=== PATIENT | male | born 1965 | race Caucasian/White ===

== ENCOUNTER 2020-05-13 07:48 | Outpatient (REF) | payer OTHER, SELFPAY ==
[2020-05-13 08:44] LABS: Hematocrit 46.7 % (42-52); Hemoglobin 15.7 g/dl (14.0-18.0); Mean Corpuscular HGB Conc 33.6 g/dl (31.0-36.0); Mean Corpuscular Hemoglobin 30.1 pg (27.0-33.0); Mean Corpuscular Volume 89.6 fL (80-98); Mean Platelet Volume 9.5 fL (9.4-12.4); Platelet Count 299 X10*3/uL (160-400); Red Blood Count 5.21 X10*6/uL (4.60-5.80); Red Cell Distribution Width 12.6 % (11.0-16.0); White Blood Count 5.3 X10*3/uL (4.8-10.8)
[2020-05-13 09:12] LABS: Alanine Aminotransferase 34 U/L (0-40); Albumin Level 4.7 g/dL (3.5-5.0); Alkaline Phosphatase 74 U/L (39-117); Anion Gap 14 (12-20); Aspartate Amino Transferase 31 U/L (5-37); Bilirubin Direct 0.2 mg/dL (0.0-0.5); Bilirubin Total 0.4 mg/dL (0.0-1.0); Blood Urea Nitrogen 19 mg/dL (9-16); Calcium 9.2 mg/dL (8.4-10.2); Carbon Dioxide 25 mmol/L (22-29); Chloride 106 mmol/L (96-108); Cholesterol 234 mg/dL; Estimated Glomerular Filt Rate > 60; Glucose Random 110 mg/dL (60-115); HDL Cholesterol 50 mg/dL; LDL Cholesterol Calculated 162 mg/dl; Potassium 5.1 mmol/L (3.3-5.1); Sodium 140 mmol/L (135-145); Total Protein 7.5 g/dL (6.5-8.0); Triglycerides 110 mg/dL
[2020-05-13 09:37] LABS: Thyroid Stimulating Hormone 1.52 uIU/mL (0.32-4.0)
[2020-05-13 09:47] LABS: Folate 19.6 ng/mL (> or = 4.0); Vitamin B12 623 pg/mL (200-900)
[2020-05-17 13:31] LABS: Vitamin D 25-OH, D2 <4 ng/mL; Vitamin D 25-OH, D3 31 ng/mL; Vitamin D 25-OH, Total 31 ng/mL (30-100)
== END 2020-05-13 07:49 | disposition home or self-care (01) ==
LOC: HO.LAB 07:48
PROVIDERS: PCP Internal Medicine; Visit Provider Internal Medicine
DX: E78.00 Pure hypercholesterolemia, unspecified (principal)
CPT/HCPCS: 36415; 80048; 80061; 80076; 82306; 82607; 82746; 84443; 85027

== ENCOUNTER 2021-03-25 13:48 | Outpatient (REF) | payer OTHER, SELFPAY ==
[2021-03-25 14:24] LABS: Hematocrit 48.2 % (42.0-52.0); Hemoglobin 16.1 g/dl (14.0-18.0); Mean Corpuscular HGB Conc 33.4 g/dl (31.0-36.0); Mean Corpuscular Hemoglobin 29.5 pg (27.0-33.0); Mean Corpuscular Volume 88.4 fL (80.0-98.0); Mean Platelet Volume 10.3 fL (9.4-12.4); Platelet Count 284 X10*3/uL (160-400); Red Blood Count 5.45 X10*6/uL (4.60-5.80); Red Cell Distribution Width 11.9 % (11.0-16.0); White Blood Count 7.2 X10*3/uL (4.8-10.8)
[2021-03-25 15:14] LABS: Alanine Aminotransferase 51 U/L (0-40); Albumin Level 4.6 g/dL (3.5-5.0); Alkaline Phosphatase 73 U/L (39-117); Anion Gap 10 (12-20); Aspartate Amino Transferase 27 U/L (5-37); Bilirubin Direct 0.2 mg/dL (0.0-0.5); Bilirubin Total 0.7 mg/dL (0.0-1.0); Blood Urea Nitrogen 15 mg/dL (9-16); Calcium 10.2 mg/dL (8.4-10.2); Carbon Dioxide 26 mmol/L (22-29); Chloride 107 mmol/L (96-108); Cholesterol 234 mg/dL; Estimated Glomerular Filt Rate > 60; Glucose Random 95 mg/dL (60-115); HDL Cholesterol 41 mg/dL; LDL Cholesterol Calculated 161 mg/dl; Potassium 4.4 mmol/L (3.3-5.1); Sodium 139 mmol/L (135-145); Total Protein 7.5 g/dL (6.5-8.0); Triglycerides 160 mg/dL
[2021-03-25 15:35] LABS: Thyroid Stimulating Hormone 2.78 uIU/mL (0.32-4.0)
[2021-03-25 16:07] LABS: Appearance Urine CLEAR; Color Urine YELLOW; Glucose Urine UA NEG (NEG); Leukocyte Esterase Urine NEG (NEG); Nitrite Urine NEG (NEG); PH 6.5 (5.0-8.0); Urine Blood NEG (NEG); Urine Ketones NEG (NEG); Urine Protein NEG (NEG-TRACE)
== END 2021-03-25 13:49 | disposition home or self-care (01) ==
LOC: HO.LAB 13:48
PROVIDERS: PCP Internal Medicine; Visit Provider Internal Medicine
DX: E78.00 Pure hypercholesterolemia, unspecified (principal); F41.1 Generalized anxiety disorder
CPT/HCPCS: 36415; 80048; 80061; 80076; 81003; 84443; 85027

== ENCOUNTER 2022-03-23 09:10 | Outpatient (REF) | payer OTHER, SELFPAY ==
[2022-03-23 10:08] LABS: Hematocrit 47.9 % (42.0-52.0); Hemoglobin 16.4 g/dl (14.0-18.0); Mean Corpuscular HGB Conc 34.2 g/dl (31.0-36.0); Mean Corpuscular Hemoglobin 30.4 pg (27.0-33.0); Mean Corpuscular Volume 88.7 fL (80.0-98.0); Mean Platelet Volume 10.1 fL (9.4-12.4); Platelet Count 294 X10*3/uL (160-400); Red Cell Distribution Width 11.9 % (11.0-16.0); White Blood Count 6.9 X10*3/uL (4.8-10.8)
[2022-03-23 10:09] LABS: Appearance Urine Clear; Color Urine Yellow; Glucose Urine UA Negative (Negative); Leukocyte Esterase Urine Negative (Negative); Nitrite Urine Negative (Negative); PH 5.5 (5.0-9.0); Specific Gravity - Urine >= 1.030 (1.005-1.025); Urine Blood Negative (Negative); Urine Ketones Trace mg/dL (Negative); Urine Protein Negative (Neg-Trace)
[2022-03-23 10:45] LABS: Alanine Aminotransferase 57 U/L (0-40); Albumin Level 4.7 g/dL (3.5-5.0); Alkaline Phosphatase 83 U/L (39-117); Anion Gap 16 (12-20); Aspartate Amino Transferase 30 U/L (5-37); Bilirubin Direct 0.2 mg/dL (0.0-0.5); Bilirubin Total 0.6 mg/dL (0.0-1.0); Blood Urea Nitrogen 19 mg/dL (9-16); Calcium 9.8 mg/dL (8.4-10.2); Carbon Dioxide 21 mmol/L (22-29); Chloride 109 mmol/L (96-108); Cholesterol 193 mg/dL; Estimated Glomerular Filt Rate > 60; Glucose Random 96 mg/dL (60-115); HDL Cholesterol 46 mg/dL; LDL Cholesterol Calculated 132 mg/dl; Potassium 4.5 mmol/L (3.3-5.1); Sodium 141 mmol/L (135-145); Total Protein 7.3 g/dL (6.5-8.0); Triglycerides 78 mg/dL
== END 2022-03-23 09:11 | disposition home or self-care (01) ==
LOC: HO.LAB 09:10
PROVIDERS: PCP Internal Medicine; Visit Provider Internal Medicine
DX: E78.00 Pure hypercholesterolemia, unspecified (principal)
CPT/HCPCS: 36415; 80048; 80061; 80076; 81003; 84443; 85027

== ENCOUNTER 2022-09-30 15:11 | Outpatient (AMB) | payer OTHER, SELFPAY ==
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
[2022-09-30 15:15] VITALS: BP 138/89; PULSE 84; O2SAT 97; BMI 26.6
== END 2022-09-30 16:11 | disposition home or self-care (01) ==
PROVIDERS: PCP Internal Medicine; Visit Provider Internal Medicine
DX: Z00.00 Encounter for general adult medical examination without abnormal findings (principal); S60.011A Contusion of right thumb without damage to nail, initial encounter; F41.1 Generalized anxiety disorder; E78.00 Pure hypercholesterolemia, unspecified
CPT/HCPCS: 99396

== ENCOUNTER 2022-11-10 12:20 | Outpatient (REF) | payer OTHER, SELFPAY ==
--- NOTE | ~2022-11-10 | XR_ITS ---
EXAMINATION: XR KNEE, LEFT CLINICAL INFORMATION: Pain. COMPARISON: Radiographs dated 05/15/2014. TECHNIQUE: AP, lateral and sunrise views of the left knee. FINDINGS: No fracture or joint effusion. Alignment is anatomic. Joint spaces are maintained. No abnormal soft tissue calcification. There are surgical clips in the medial upper calf. XR/XR knee LT 3V IMPRESSION: Unremarkable left knee.
== END 2022-11-10 12:21 | disposition home or self-care (01) ==
LOC: HO.HOSX 12:20
PROVIDERS: Visit Provider Orthopaedic Surgery
DX: M25.562 Pain in left knee (principal)
CPT/HCPCS: 73562

== ENCOUNTER 2022-11-10 15:00 | Outpatient (AMB) | payer OTHER, SELFPAY ==
--- NOTE | 2022-11-10 15:04 | A.OFFVIS_ITS ---
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 Patient reports ongoing pain for many years. 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 He describes his pain as aching in nature. He denies any locking or giving way. Most of the pain is along the anterior aspect of his knee. He has not had an injection. Allergies acetaminophen [Vicodin] Allergy (Unknown, Verified 11/10/22 15:05) itching hydrocodone [From VICODIN] Allergy (Unknown, Verified 11/10/22 15:05) ITCHING Medication List - Last Reconciled 11/11/22 by Oren Muhammad MD albuterol sulfate 90 mcg/actuation 2 puffs inhalation Q6H PRN quetiapine 100 mg PO BEDTIME sertraline 50 mg PO DAILY sildenafil 100 mg PO DAILY PRN PFSH Medical History (Updated 11/08/22 @ 07:34 by Oren Muhammad MD) Erectile dysfunction Major depressive disorder in remission Reactive airway disease Generalized anxiety disorder Borderline hypercholesterolemia Surgical History History of shoulder surgery History of tonsillectomy History of varicose vein stripping Family History Father Cancer Hypertension Mother Cancer Social History Housing: House Alcohol intake: never Patient Tobacco Use Status: Former Tobacco user Tobacco use type: Cigarette e-Cigarette/Vaping Use: Never Used Second Hand Smoke Exposure: No service: Yes Current occupational status: employed Cognitive needs: No Hearing needs: No Vision needs: Yes (glasses) Physical Exam Vital Signs: BMI result Body Mass Index 26.6 Const Other: Well-nourished well-developed very friendly male awake alert and oriented x3 in no acute distress Extrem Other: Left knee examination shows a minimal effusion, minimal crepitus with range of motion, no joint line tenderness, negative Santino's test Results Reviewed Results Reviewed: X-rays of the patient's left knee show mild diffuse joint space narrowing, no acute bony abnormalities Assessment & Plan Assessment & Plan (1) Left knee pain: Code(s): M25.562 - Pain in left knee Plan Ms. Gooden presents with intermittent left knee pain due to early degenerative joint disease. I had a lengthy discussion with the patient regarding the treatment options. He does not wish for a cortisone injection at this time. Activity modifications were discussed at length with the patient. He will follow up with me on an as-needed basis should his symptoms worsen in any way. Feel free to call me at any time should questions regarding his orthopedic management arise. I spent 21 minutes in reviewing the patient's records and imaging studies, seeing the patient and documenting in the medical record. Orders: Orders XR knee LT 3V 11/10/22 M25.562 - Pain in left knee Coding Level of Care Code New Pt Level 2 (44706) Diagnoses Left knee pain M25.562
[2022-11-10 15:14] VITALS: BMI 26.6
== END 2022-11-10 15:32 | disposition home or self-care (01) ==
PROVIDERS: PCP Internal Medicine; Visit Provider Orthopaedic Surgery
DX: M25.562 Pain in left knee (principal)
CPT/HCPCS: 99202

== ENCOUNTER 2023-03-21 08:23 | Outpatient (AMB) | payer OTHER, SELFPAY ==
--- NOTE | 2023-03-21 08:26 | MHC.PC.OV ---
Vital Signs 03/21/23 08:28 Height 5 ft 7 in Weight 190 lb 2 oz BMI 29.8 BP 120/80 Blood Pressure Location Lt brachial Position Sitting Pulse 86 Pulse Source Pulse Oximeter Pulse Oximetry (%) 96 Oxygen Delivery Method Room Air Intake Visit Reasons: High Blood Pressure Intake Note: Patient is here to follow up on High Blood Pressure and medication review. Requesting for letter for work regarding possible new medication. 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: Not Required per policy Accompanied by: Self / Same As Patient Allergies acetaminophen [Vicodin] Allergy (Unknown, Verified 03/21/23 08:28) itching hydrocodone [From VICODIN] Allergy (Unknown, Verified 03/21/23 08:28) ITCHING Tobacco use date assessed: 03/21/23 Dental Screening Dental Screen Date: 03/21/23 Did you have a dental visit in the last 12 months?: Yes Did you have a dental problem in the last 6 months where you did not have access to dental care?: No Was dental information given to patient?: Patient has dentist HPI High Blood Pressure HPI Details 57-year-old male presents to the office to discuss his chronic medical conditions. Since last office visit, patient has medications for mental health have been changed. He is now on Adderall, mirtazapine, Seroquel and Zoloft. Since last office visit, he he admits some work for mental health reasons. Currently patient is working and able to do all activities of daily living. Is provider at the [facility] noted that his blood pressure is slightly elevated. Patient has been checking his blood pressures at home and reports that his diastolic blood pressure is elevated. Reports no symptoms of headaches or blurred vision. [facility], [facility] Medical History (Updated 03/21/23 @ 09:02 by Jose Orellana MD) Essential hypertension Erectile dysfunction Major depressive disorder in remission Reactive airway disease Generalized anxiety disorder Borderline hypercholesterolemia Surgical History History of tonsillectomy History of varicose vein stripping History of shoulder surgery Family History Father Cancer Hypertension Mother Cancer Social History Housing: House Alcohol intake: never Patient Tobacco Use Status: Former Tobacco user Tobacco use type: Cigarette e-Cigarette/Vaping Use: Never Used Second Hand Smoke Exposure: No service: Yes Current occupational status: employed Cognitive needs: No Hearing needs: No Vision needs: Yes (glasses) Questionnaire PHQ-9 Over the last 2 weeks, how often have you been bothered by any of the following problems? 1. Little interest or pleasure in doing things: not at all 2. Feeling down, depressed, or hopeless: several days (on medication) 3. Trouble falling or staying asleep, or sleeping too much: not at all 4. Feeling tired or having little energy: not at all 5. Poor appetite or overeating: not at all 6. Feeling bad about yourself - or that you are a failure or have let yourself or your family down: not at all 7. Trouble concentrating on things, such as reading the newspaper or watching television: not at all 8. Moving or speaking so slowly that other people could have noticed. Or the opposite - being so fidgety or restless that you have been moving around a lot more than usual: not at all 9. Thoughts that you would be better off or of hurting yourself in some way: not at all Total score: 1 Depression Screening Interpretation: Negative Depression Screening Done: Yes Source: Developed by Drs. Massimo Acosta, Zee Lopez, Philippe Groves and colleagues, with an educational yonathan from [employer]. Thrive Questionnaire Date Thrive assessed: 03/21/23 I am a: Patient What is your living situation today?: I have a steady place to live Within the past 12 months, did the food you bought not last and you didn't have the money to get more?: Never true Within the past 12 months, did you worry whether your food would run out before you got money to buy more?: Never true Do you have trouble paying for medicines?: No Do you have trouble getting transportation to medical appointments?: No Do you have trouble paying your heating and electricity bill?: No Do you have trouble taking care of your child, family member or friend?: No Do you have trouble with day-to-day activities such as bathing, preparing meals, shopping, managing finances, etc.?: No Are you currently unemployed and looking for a job?: No Are you interested in more education?: No Currently or been in a relationship where the following occur: no concerns reported THRIVE Score: 0 AUDIT C Alcohol Use Questionnaire (AUDIT-C) 1. How often do you have a drink containing alcohol?: Never Total Score: 0 SUKHI-7 AMB Questionnaire SUKHI-7 Date SUKHI - 7 assessed: 03/21/23 Feeling nervous, anxious, or on edge: 1 = Several days (on medication) Not being able to stop or control worryin = Not at all Worrying too much about different things: 0 = Not at all Trouble relaxin = Not at all Being so restless that it is hard to sit still: 0 = Not at all Becoming easily annoyed or irritable: 0 = Not at all Feeling afraid as if something awful might happen: 0 = Not at all Total SUKHI-7 score (0-4 normal; 5-9 mild; 10-14 moderate; 15-21 severe): 1 Source: Developed by Drs. Massimo Acosta, Zee Lopez, Philippe Groves and colleagues, with an educational yonathan from [employer]. Physical exam (Primary Care) Vital Signs: Last Vital Signs Pulse 86 03/21/23 08:28 BP 120/80 03/21/23 08:28 Pulse Ox 96 03/21/23 08:28 Oxygen Delivery Method Room Air 03/21/23 08:28 Care Plan Goal for BP management: Blood pressure is in range. BMI result Body Mass Index 29.8 1 lb per week weight loss suggested. BMI Assessment/Plan discussion: High Tobacco/Smoking Status: Tobacco use Status Tobacco use date assessed 03/21/23 03/21/23 08:28 Patient Tobacco Use Status Former Tobacco user 03/21/23 08:28 Tobacco use type Cigarette 03/21/23 08:28 e-Cigarette/Vaping Use Never Used 03/21/23 08:28 PHQ-9: PHQ-9 Score PHQ-9: Total score 1 03/21/23 08:34 Depression Screening Interpretation: Negative Thrive Assessment: Date of Thrive Assessment Date Thrive assessed 03/21/23 03/21/23 08:28 Currently or been in a relationship where the following occur: no concerns reported Const General: cooperative and healthy appearing Nutritional Appearance: well nourished Orientation/consciousness: patient oriented x3 Limitations: no limitations HENMT Head: Yes normal to inspection Eyes General: appearance normal, both eyes and all related structures Neck Neck: Yes normal visual inspection Chest Chest palpation & inspection: normal palpation of entire chest wall Resp Effort & Inspection: normal respiratory effort Neuro General: patient oriented x3 Assessment and Plan Assessment & Plan (1) Essential hypertension: Code(s): I10 - Essential (primary) hypertension Plan: Lisinopril added to the regimen. Blood work has been ordered. Will call with the results of the test. (2) Major depressive disorder in remission: Code(s): F32.5 - Major depressive disorder, single episode, in full remission Plan: Continue current medications. (3) Generalized anxiety disorder: Code(s): F41.1 - Generalized anxiety disorder Orders: Orders Basic Metabolic Panel Today I10 - Essential (primary) hypertension Lipid Panel Today I10 - Essential (primary) hypertension Thyroid Stimulating Hormone Today I10 - Essential (primary) hypertension UA and rflx microscopic Today I10 - Essential (primary) hypertension Complete Blood Count no Diff Today I10 - Essential (primary) hypertension Liver Panel Today I10 - Essential (primary) hypertension Coding Level of Care Code Est Pt Level 4 (13413) Diagnoses Essential hypertension I10 Major depressive disorder in remission F32.5 Generalized anxiety disorder F41.1
[2023-03-21 08:28] VITALS: BP 120/80; PULSE 86; O2SAT 96; BMI 29.8
== END 2023-03-21 09:00 | disposition home or self-care (01) ==
PROVIDERS: PCP Internal Medicine; Visit Provider Internal Medicine
DX: I10 Essential (primary) hypertension (principal); F32.5 Major depressive disorder, single episode, in full remission; F41.1 Generalized anxiety disorder
CPT/HCPCS: 99214

== ENCOUNTER 2023-03-21 09:04 | Outpatient (REF) | payer OTHER, SELFPAY ==
[2023-03-21 10:55] LABS: Hematocrit 44.4 % (42.0-52.0); Mean Corpuscular HGB Conc 33.8 g/dl (31.0-36.0); Mean Corpuscular Hemoglobin 29.5 pg (27.0-33.0); Mean Corpuscular Volume 87.2 fL (80.0-98.0); Mean Platelet Volume 9.5 fL (9.4-12.4); Platelet Count 276 X10*3/uL (160-400); Red Blood Count 5.09 X10*6/uL (4.60-5.80); Red Cell Distribution Width 12.9 % (11.0-16.0); White Blood Count 6.8 X10*3/uL (4.8-10.8)
[2023-03-21 11:06] LABS: Appearance Urine Clear; Color Urine Yellow; Glucose Urine UA Negative (Negative); Leukocyte Esterase Urine Negative (Negative); Nitrite Urine Negative (Negative); Specific Gravity - Urine 1.015 (1.005-1.025); Urine Blood Negative (Negative); Urine Ketones Negative (Negative); Urine Protein Negative (Neg-Trace)
[2023-03-21 11:16] LABS: Alanine Aminotransferase 32 U/L (0-40); Albumin Level 4.3 g/dL (3.5-5.0); Alkaline Phosphatase 82 U/L (39-117); Anion Gap 13 (12-20); Aspartate Amino Transferase 28 U/L (5-37); Bilirubin Direct 0.1 mg/dL (0.0-0.5); Bilirubin Total 0.3 mg/dL (0.0-1.0); Blood Urea Nitrogen 17 mg/dL (9-16); Calcium 9.8 mg/dL (8.4-10.2); Carbon Dioxide 26 mmol/L (22-29); Chloride 106 mmol/L (96-108); Cholesterol 203 mg/dL (<200); Estimated Glomerular Filt Rate > 60; Glucose Random 116 mg/dL (60-115); HDL Cholesterol 59 mg/dL (>40); LDL Cholesterol Calculated 122 mg/dL (<100); Potassium 4.7 mmol/L (3.3-5.1); Sodium 140 mmol/L (135-145); Total Protein 7.2 g/dL (6.5-8.0); Triglycerides 112 mg/dL (<150)
== END 2023-03-21 09:05 | disposition home or self-care (01) ==
LOC: HO.10HDL 09:04
PROVIDERS: Visit Provider Internal Medicine
DX: I10 Essential (primary) hypertension (principal)
CPT/HCPCS: 36415; 80048; 80061; 80076; 81003; 84443; 85027

== ENCOUNTER 2023-05-26 11:22 | Outpatient (AMB) | payer OTHER, SELFPAY ==
[2023-05-26 11:44] VITALS: BMI 29.8
--- NOTE | 2023-05-26 11:44 | A.OFFVIS_ITS ---
Intake Vital Signs 05/26/23 11:44 Height 5 ft 7 in Weight 190 lb BMI 29.8 Intake Visit Reasons: OV-B/L knee injection Intake Note: Rafael is a 57 year old male who presents with bilateral knee pains. He describes his pains as achy in nature. He has tried Tylenol and anti- inflammatory medicines which gave him minimal relief. Allergies acetaminophen [Vicodin] Allergy (Unknown, Verified 05/26/23 11:53) itching hydrocodone [From VICODIN] Allergy (Unknown, Verified 05/26/23 11:53) ITCHING Medication List - Last Reconciled 05/27/23 by Oren Muhammad MD albuterol sulfate 90 mcg/actuation 2 puffs inhalation Q6H PRN lisinopril 5 mg PO DAILY omeprazole 20 mg PO DAILY quetiapine 50 mg PO BEDTIME sertraline 50 mg PO DAILY sildenafil 100 mg PO DAILY PRN PFSH Medical History (Updated 05/27/23 @ 06:57 by Oren Muhammad MD) Left knee pain Essential hypertension Erectile dysfunction Major depressive disorder in remission Reactive airway disease Generalized anxiety disorder Borderline hypercholesterolemia Surgical History History of tonsillectomy History of varicose vein stripping History of shoulder surgery Family History Father Cancer Hypertension Mother Cancer Social History Housing: House Alcohol intake: never Patient Tobacco Use Status: Former Tobacco user Tobacco use type: Cigarette e-Cigarette/Vaping Use: Never Used Second Hand Smoke Exposure: No service: Yes Current occupational status: employed Cognitive needs: No Hearing needs: No Vision needs: Yes (glasses) Physical Exam Vital Signs: BMI result Body Mass Index 29.8 Const Other: Well-nourished well-developed very friendly male awake alert and oriented x3 in no acute distress Extrem Other: Bilateral lower extremity examination shows good capillary refill, no skin lesions noted, normal sensation light touch Bilateral knee examination is shows minimal effusions, mild crepitus with range of motion, no instability Office Procedures Joint Injection/Drain Joint Injection/Drain Primary Site: left knee Prep: site was prepped using aseptic technique Injected: 40 mg of, DepoMedrol and 1% plain lidocaine Procedure: The patient tolerated the procedure well Coding 79131 - Large joint Procedure code (CPT) selection complete Joint Injection/Drain Joint Injection/Drain Primary Site: right knee Prep: site was prepped using aseptic technique Injected: 40 mg of, DepoMedrol and 1% plain lidocaine Procedure: The patient tolerated the procedure well Coding 94576 - Large joint Procedure code (CPT) selection complete Assessment & Plan Assessment & Plan (1) Left knee pain: Code(s): M25.562 - Pain in left knee (2) Right knee pain: Code(s): M25.561 - Pain in right knee Plan Mr. Gooden presents with bilateral knee pains due to early degenerative joint disease. I had a lengthy discussion with the patient regarding the treatment options. The risks and benefits of bilateral knee cortisone injections were discussed at length with the patient. The patient wished to proceed with the injections. He tolerated the injections well. He will continue with activities as tolerated. He will follow up with me on an as-needed basis should his symptoms not plateau at an unacceptable level over the next few months. Feel free to call me at any time should questions regarding his orthopedic management arise. I spent 22 minutes in reviewing the patient's records and imaging studies, seeing the patient and documenting in the medical record. Orders: Orders AMB Joint Injection/Aspiration 05/26/23 M25.562 - Pain in left knee AMB Joint Injection/Aspiration 05/26/23 M25.561 - Pain in right knee Coding Level of Care Code Est Pt Level 2 (32339) Diagnoses Left knee pain M25.562 Right knee pain M25.561 CPT Codes Coding - 99071 Large joint: 38944 - Large joint ([id number]) Coding - 65213 Large joint: 09882 - Large joint ([id number])
== END 2023-05-26 12:22 | disposition home or self-care (01) ==
PROVIDERS: PCP Internal Medicine; Visit Provider Orthopaedic Surgery
DX: M25.562 Pain in left knee (principal); M25.561 Pain in right knee
CPT/HCPCS: 20610; 99212

== ENCOUNTER → 2023-05-26 11:22 | Outpatient (BNVA) | payer OTHER, SELFPAY | PROVIDERS: PCP Internal Medicine; Visit Provider Orthopaedic Surgery | DX: M17.0 Bilateral primary osteoarthritis of knee (principal) | CPT/HCPCS: 20610; J1010; J1020 ==

== ENCOUNTER 2023-07-14 07:32 | Outpatient (AMB) | payer OTHER, SELFPAY ==
--- NOTE | 2023-07-14 07:42 | MHC.OFFVIS ---
Vital Signs 07/14/23 07:49 Height 5 ft 7 in Weight 190 lb BMI 29.8 BP 146/80 H Blood Pressure Location Lt brachial Position Sitting Pulse 79 Intake Visit Reasons: Colonoscopy Screening Intake Note: Patient new consult for 3rd pre colonoscopy screening. Patient denies any GI issues. He have 2 more Colonoscopy in the pass at [facility]. Pensionholder Information Clerk Required: No Accompanied by: Self / Same As Patient Allergies acetaminophen [Vicodin] Allergy (Unknown, Verified 07/14/23 07:41) itching hydrocodone [From VICODIN] Allergy (Unknown, Verified 07/14/23 07:41) ITCHING Medication List - Last Reconciled 07/14/23 by Alice Fernandes PA-C albuterol sulfate 90 mcg/actuation 2 puffs inhalation Q6H PRN lisinopril 5 mg PO DAILY omeprazole 20 mg PO DAILY quetiapine 50 mg PO BEDTIME sertraline 50 mg PO DAILY sildenafil 100 mg PO DAILY PRN HPI Comments Details: A 57 y/o male family history of colon cancer-due for colonoscopy 2019- normal; colonoscopy Fam hx - father and mat aunt Normal bowels Appetite is good-however does have GERD he has been taking omeprazole 20 mg fair response-he has never had a screening for Akers's Uses inhaler-good response No nausea, vomiting hematemesis, hematochezia fever or chills PFSH Medical History (Updated 07/14/23 @ 13:45 by Alice Fernandes PA-C) Left knee pain Essential hypertension Erectile dysfunction Major depressive disorder in remission Reactive airway disease Generalized anxiety disorder Borderline hypercholesterolemia Surgical History History of tonsillectomy History of varicose vein stripping History of shoulder surgery Family History Father Cancer Hypertension Mother Cancer Social History (Updated 07/14/23 @ 10:44 by Alice Fernandes PA-C) Housing: House Alcohol intake: never Patient Tobacco Use Status: Former Tobacco user Tobacco use type: Cigarette e-Cigarette/Vaping Use: Never Used Second Hand Smoke Exposure: No service: Yes Current occupational status: employed Current occupational exposures/hazards: Yes Cognitive needs: No Hearing needs: No Vision needs: Yes (glasses) Review of Systems Const All systems reviewed & are unremarkable except as noted in HPI and below Card Denies chest pain and Denies dyspnea Resp Denies dyspnea GI Denies abdominal pain, Denies change in bowel habits, Reports heartburn, Denies nausea and Denies vomiting Physical Exam Vital Signs: Last Vital Signs Pulse 79 07/14/23 07:49 BP 146/80 H 07/14/23 07:49 BMI result Body Mass Index 29.8 Const General: cooperative, healthy appearing, comfortable and no acute distress Orientation/consciousness: patient oriented x3 Limitations: no limitations Eyes Sclerae: sclerae normal Resp Effort & Inspection: normal respiratory effort and able to speak in complete sentences Auscultation: clear to auscultation bilaterally, no rales, no rhonchi and no wheezes Cardio Rate: regular rate Rhythm: regular rhythm Heart sounds: S1 normal heart sound present and S2 normal heart sound present GI Palpation (GI): Soft to palpation and nontender Auscultation: normal bowel sounds Skin General skin exam: no rashes or lesions noted Neuro General: patient oriented x3 Extrem General: Yes full ROM Psych Appearance: grossly normal and well kempt Mental Status: mental status grossly normal Speech and movement: Normal speech and movement present and Clear speech present Affect: normal affect Attitude: cooperative Thought process: Normal thought process present Thought content: Normal thought content present Insight: Good insight present (Psych) Judgement: Good judgement present (Psych) Assessment & Plan Assessment & Plan (1) Family history of colon cancer: Comment: Father and maternal aunt Code(s): Z80.0 - Family history of malignant neoplasm of digestive organs Category: Medical Plan: Colonoscopy (2) Acid reflux: Comment: Very pleasant Gent Acid reflux for years, PPI never had screening for Akers Code(s): K21.9 - Gastro-esophageal reflux disease without esophagitis Category: Medical Plan: EGD -Akers's surveillance, r/o PUD, nonulcer dyspepsia, esophagitis other endoscopic findings to account for his some Continue PPI Reflux precautions Plan egd/ colo= send ss Orders: Orders EGD/Maple Combo - GI Use Only Today Medications: New bisacodyl (Dulcolax (bisacodyl)) Day before procedure @ 12 noon Take 4 tablets by mouth followed by large glass of water 20 mg (4 x 5 mg) PO ONCE PRN 4 tabs 0RF colonoscopy prep 1 day Z12.11 - Encounter for screening for malignant neoplasm of colon polyethylene glycol 3350 (Miralax) Take as directed by mouth the day before your procedure. 238 grams PO ONCE PRN 238 grams 0RF laxative effect 1 day Patient Instructions: EGD colonoscopy MiraLax Gatorade prep, reviewed literature given Reflux precautions Continue PPI Call with questions or concerns Coding Level of Care Code New Pt Level 3 (41022) Diagnoses Family history of colon cancer Z80.0 Acid reflux K21.9 Time Spent (min) 35
[2023-07-14 07:49] VITALS: BP 146/80; PULSE 79; BMI 29.8
== END 2023-07-14 08:38 | disposition home or self-care (01) ==
PROVIDERS: PCP Internal Medicine; Visit Provider Physician Assistant
DX: Z80.0 Family history of malignant neoplasm of digestive organs (principal); K21.9 Gastro-esophageal reflux disease without esophagitis
CPT/HCPCS: 99203

== ENCOUNTER → 2023-07-14 07:32 | Outpatient (BNVA) | payer OTHER, SELFPAY | PROVIDERS: PCP Internal Medicine; Visit Provider Physician Assistant ==

== ENCOUNTER 2023-09-22 15:01 | Outpatient (AMB) | payer OTHER, SELFPAY ==
[2023-09-22 15:08] VITALS: BP 132/90; PULSE 80; O2SAT 98; BMI 30.1
--- NOTE | 2023-09-22 15:08 | A.OFFPC_ITS ---
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 Allergies acetaminophen [Vicodin] Allergy (Unknown, Verified 09/22/23 15:09) itching hydrocodone [From VICODIN] Allergy (Unknown, Verified 09/22/23 15:09) ITCHING Medication List - Last Reconciled 09/22/23 by Nicol Damon PA-C albuterol sulfate 90 mcg/actuation 2 puffs inhalation Q6H PRN bisacodyl (Dulcolax (bisacodyl)) 20 mg (4 x 5 mg) PO ONCE PRN 1 day lisinopril 10 mg PO DAILY omeprazole 20 mg PO DAILY polyethylene glycol 3350 (Miralax) 238 grams PO ONCE PRN 1 day quetiapine 50 mg PO BEDTIME sertraline 50 mg PO DAILY sildenafil 100 mg PO DAILY PRN Tobacco use date assessed: 03/21/23 Dental Screening Dental Screen Date: 03/21/23 Did you have a dental visit in the last 12 months?: Yes Did you have a dental problem in the last 6 months where you did not have access to dental care?: No Was dental information given to patient?: Patient has dentist HPI 6mth f/u HPI Details 58-year-old male with past medical histo ry of GERD, hypertension, generalized anxiety disorder, elevated cholesterol, and depression last seen by Dr. Orellana coming in for follow up. Patient regularly follows with the [place] for mental health services and received some medications through them. Patient also sees Orthopedics for bilateral knee injections. He does also see a chicle grinder feeder for plantar fasciitis and has received injections for this to. Today he tells us his blood pressures have been mostly elevated while at home he does take them multiple times a day. He has been taking the lisinopril 10 mg for the past 6 months every day. He also mentions he has been having increased bilateral foot pain from his plantar fasciitis. He is looking to have an injection but is unsure when he will be able to get in with his chicle grinder feeder. [facility] Medical History (Updated 09/22/23 @ 17:09 by Nicol Damon PA-C) Left knee pain Essential hypertension Erectile dysfunction Major depressive disorder in remission Reactive airway disease Generalized anxiety disorder Borderline hypercholesterolemia Surgical History History of tonsillectomy History of varicose vein stripping History of shoulder surgery Family History Father Cancer Hypertension Mother Cancer Social History (Updated 07/14/23 @ 10:44 by Alice Fernandes PA-C) Housing: House Alcohol intake: never Patient Tobacco Use Status: Former Tobacco user Tobacco use type: Cigarette e-Cigarette/Vaping Use: Never Used Second Hand Smoke Exposure: No service: Yes Current occupational status: employed Current occupational exposures/hazards: Yes Cognitive needs: No Hearing needs: No Vision needs: Yes (glasses) Questionnaire PHQ-9 Over the last 2 weeks, how often have you been bothered by any of the following problems? 1. Little interest or pleasure in doing things: not at all 2. Feeling down, depressed, or hopeless: several days (on medication) 3. Trouble falling or staying asleep, or sleeping too much: not at all 4. Feeling tired or having little energy: not at all 5. Poor appetite or overeating: not at all 6. Feeling bad about yourself - or that you are a failure or have let yourself or your family down: not at all 7. Trouble concentrating on things, such as reading the newspaper or watching television: not at all 8. Moving or speaking so slowly that other people could have noticed. Or the opposite - being so fidgety or restless that you have been moving around a lot more than usual: not at all 9. Thoughts that you would be better off or of hurting yourself in some way: not at all Total score: 1 Depression Screening Interpretation: Negative Depression Screening Done: Yes Source: Developed by Drs. Massimo Acosta, Zee Lopez, Philippe Groves and colleagues, with an educational yonathan from [employer]. Thrive Questionnaire Date Thrive assessed: 03/21/23 I am a: Patient What is your living situation today?: I have a steady place to live Within the past 12 months, did the food you bought not last and you didn't have the money to get more?: Never true Within the past 12 months, did you worry whether your food would run out before you got money to buy more?: Never true Do you have trouble paying for medicines?: No Do you have trouble getting transportation to medical appointments?: No Do you have trouble paying your heating and electricity bill?: No Do you have trouble taking care of your child, family member or friend?: No Do you have trouble with day-to-day activities such as bathing, preparing meals, shopping, managing finances, etc.?: No Are you currently unemployed and looking for a job?: No Are you interested in more education?: No THRIVE Score: 0 AUDIT C Alcohol Use Questionnaire (AUDIT-C) 1. How often do you have a drink containing alcohol?: Never 3. How often do you have six or more drinks on one occasion?: Never Total Score: 0 SUKHI-7 AMB Questionnaire SUKHI-7 Date SUKHI - 7 assessed: 03/21/23 Feeling nervous, anxious, or on edge: 1 = Several days (on medication) Not being able to stop or control worryin = Not at all Worrying too much about different things: 0 = Not at all Trouble relaxin = Not at all Being so restless that it is hard to sit still: 0 = Not at all Becoming easily annoyed or irritable: 0 = Not at all Feeling afraid as if something awful might happen: 0 = Not at all Total SUKHI-7 score (0-4 normal; 5-9 mild; 10-14 moderate; 15-21 severe): 1 Source: Developed by Drs. Massimo Acosta, Zee Lopez, Philippe Groves and colleagues, with an educational yonathan from [employer]. Review of Systems Const Denies body aches, Denies chills and Denies fever(s) Eyes Reports no additional complaints ENT Reports no additional complaints and Denies dizziness Card Denies chest pain, Denies edema, Denies irregular heart rhythm, Denies lightheadedness and Denies dyspnea Resp Denies dyspnea GI Reports no additional complaints Reports no additional complaints Musc Reports as per HPI and Denies abnormal gait Skin/Breast Reports system reviewed and no additional complaints, except as documented Neuro Denies abnormal gait and Denies dizziness Psych Reports no additional complaints Physical exam (Primary Care) Vital Signs: Last Vital Signs Pulse 80 09/22/23 15:08 BP 132/90 H 09/22/23 15:08 Pulse Ox 98 09/22/23 15:08 Oxygen Delivery Method Room Air 09/22/23 15:08 BMI result Body Mass Index 30.1 Tobacco/Smoking Status: Tobacco use Status Tobacco use date assessed 03/21/23 09/22/23 15:09 Patient Tobacco Use Status Former Tobacco user 09/22/23 15:09 Tobacco use type Cigarette 09/22/23 15:09 e-Cigarette/Vaping Use Never Used 09/22/23 15:09 PHQ-9: PHQ-9 Score PHQ-9: Total score 1 09/22/23 16:37 Depression Screening Interpretation: Negative Thrive Assessment: Date of Thrive Assessment Date Thrive assessed 03/21/23 09/22/23 15:09 Const General: cooperative, healthy appearing, comfortable and no acute distress Orientation/consciousness: patient oriented x3 HENMT Head: Yes normocephalic Ears: hearing grossly normal bilaterally General nose exam: Normal external nose present Eyes General: appearance normal, both eyes and all related structures Conjunctivae: conjunctivae normal Neck Neck: Yes full ROM and Yes no lymphadenopathy Resp Effort & Inspection: normal respiratory effort and able to speak in complete sentences Cardio Rate: regular rate Rhythm: regular rhythm Skin General skin exam: no rashes or lesions noted Neuro General: patient oriented x3 Gait exam (Neuro): Normal gait present Extrem General: Yes normal to inspection, Yes full ROM and No edema Psych Affect: normal affect Attitude: cooperative Insight: Good insight present (Psych) Judgement: Good judgement present (Psych) Assessment and Plan Assessment & Plan (1) Essential hypertension: Code(s): I10 - Essential (primary) hypertension Plan: Blood pressure elevated again in the office today. Blood pressure was 144/86 and 140/90 when retaken. Recommended increasing dose of lisinopril to 20 mg. Advised patient that if he begins to have low blood pressures at home less than 110/60 or he begins to have symptoms of lightheadedness or dizziness then to discontinue the 20 mg and returned to the 10 mg and call the office. Follow up in 2 months for repeat evaluation. Patient is agreeable to this plan. (2) Plantar fasciitis: Code(s): M72.2 - Plantar fascial fibromatosis Plan: Patient has a history of plantar fasciitis in his followed by a chicle grinder feeder. He has previously had injections in his feet and found good relief from this. He has also been working on the stretching exercises at home. He is requesting a stronger medication in the meantime until he can get scheduled for another injection. We can try a muscle relaxer to help with the pain. Advised patient he can not drive or work while on this medication. Plan This note was constructed using voice recognition software. While every effort has been made to ensure accuracy and convex grinder operator, still areas may have been included sometimes these areas may affect the content or meeting of the given symptoms. Total time spent caring for the patient today was 20 minutes. This includes time spent before the visit reviewing the chart, time spent during the visit, and time spent after the visit and documentation. Medications: New cyclobenzaprine 5 mg PO TID PRN 14 tabs 0RF muscle pain lisinopril 20 mg PO DAILY 30 tabs 3RF Discontinued lisinopril Discontinued Reason: Patient no longer taking 10 mg PO DAILY 90 tabs 1RF Coding Level of Care Code Est Pt Level 4 (38889) Diagnoses Essential hypertension I10 Plantar fasciitis M72.2
== END 2023-09-22 16:59 | disposition home or self-care (01) ==
PROVIDERS: PCP Internal Medicine
DX: I10 Essential (primary) hypertension (principal); M72.2 Plantar fascial fibromatosis
CPT/HCPCS: 99214

== ENCOUNTER 2023-10-13 10:19 | Outpatient (REF) | payer OTHER, SELFPAY | END 2023-10-13 10:20 | disposition home or self-care (01) | LOC: HO.HOSX 10:19 | PROVIDERS: Visit Provider Orthopaedic Surgery | DX: M25.561 Pain in right knee (principal); M25.562 Pain in left knee | CPT/HCPCS: 20610; J1010; J3301 ==

== ENCOUNTER 2023-10-13 15:24 | Outpatient (AMB) | payer OTHER, SELFPAY ==
[2023-10-13 15:26] VITALS: BMI 30.1
--- NOTE | 2023-10-13 15:26 | MHC.OFFVIS ---
Vital Signs 10/13/23 15:26 Height 5 ft 7 in Weight 192 lb BMI 30.1 Intake Visit Reasons: OV- B/L knee pain last inj 05/26/23 Intake Note: Rafael is a 57 year old male who presents with complaints of bilateral knee pains. The patient did have cortisone injections given into both of his knees on 05/26/2023. He states he got fairly good relief from those injections. Bilateral knee pains have returned. Patient reports ongoing pain for many years. 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 He questions whether or not his knee pains are directly linked to his prior physician in the . The patient also states that he has a cook pressure regarding this matter. The patient states that if he does not get lasting relief from the cortisone injection therapy he would be interested in left knee arthroscopic surgery later this year if that type of surgery is clinically indicated. The patient has not had an MRI. Allergies acetaminophen [Vicodin] Allergy (Unknown, Verified 10/13/23 15:30) itching hydrocodone [From VICODIN] Allergy (Unknown, Verified 10/13/23 15:30) ITCHING Medication List - Last Reconciled 10/14/23 by Oren Muhammad MD albuterol sulfate 90 mcg/actuation 2 puffs inhalation Q6H PRN bisacodyl (Dulcolax (bisacodyl)) 20 mg (4 x 5 mg) PO ONCE PRN 1 day cyclobenzaprine 5 mg PO TID PRN lisinopril 20 mg PO DAILY omeprazole 20 mg PO DAILY polyethylene glycol 3350 (Miralax) 238 grams PO ONCE PRN 1 day quetiapine 50 mg PO BEDTIME sertraline 50 mg PO DAILY sildenafil 100 mg PO DAILY PRN PFSH Medical History (Updated 10/14/23 @ 06:37 by Oren Muhammad MD) Left knee pain Essential hypertension Erectile dysfunction Major depressive disorder in remission Reactive airway disease Generalized anxiety disorder Borderline hypercholesterolemia Surgical History History of tonsillectomy History of varicose vein stripping History of shoulder surgery Family History Father Cancer Hypertension Mother Cancer Social History (Updated 07/14/23 @ 10:44 by Alice Fernandes PA-C) Housing: House Alcohol intake: never Patient Tobacco Use Status: Former Tobacco user Tobacco use type: Cigarette e-Cigarette/Vaping Use: Never Used Second Hand Smoke Exposure: No service: Yes Current occupational status: employed Current occupational exposures/hazards: Yes Cognitive needs: No Hearing needs: No Vision needs: Yes (glasses) Physical Exam Vital Signs: BMI result Body Mass Index 30.1 Extrem Other: Bilateral knee examination shows minimal effusions, mild crepitus with range of motion, positive Santino's test on the left, medial joint line tenderness, no instability Office Procedures Joint Injection/Aspiration Joint Injection/Aspiration Primary Site: right knee Prep: site was prepped using aseptic technique Injected: 40 mg of, DepoMedrol and 1% plain lidocaine Procedure: The patient tolerated the procedure well Coding 41859 - Large joint Procedure code (CPT) selection complete Joint Injection/Aspiration Joint Injection/Aspiration Primary Site: left knee Prep: site was prepped using aseptic technique Injected: 40 mg of, DepoMedrol and 1% plain lidocaine Procedure: The patient tolerated the procedure well Coding 58754 - Large joint Procedure code (CPT) selection complete Results Reviewed Results Reviewed: X-rays of the patient's bilateral knees show mild joint space narrowing, no acute bony abnormalities Assessment & Plan Assessment & Plan (1) Left knee pain: Code(s): M25.562 - Pain in left knee Category: Medical (2) Right knee pain: Code(s): M25.561 - Pain in right knee Category: Medical Plan Mr. Gooden presents with bilateral knee pains, left greater than right, due to early degenerative joint disease as well as possible medial meniscus tearing. The risks and benefits of bilateral knee cortisone injections were discussed at length with the patient. The patient wished to proceed. He tolerated the injections well. The patient questions whether or not there is a length between his work in the and his current knee pathology. I discussed with the patient the fact that it is difficult to correlate activity from several years ago to current musculoskeletal pathology. The patient also questions whether or not he would be a candidate for left knee arthroscopic surgery. I discussed with the patient the fact that arthroscopic surgery when performed for a diagnosis of degenerative joint disease has been shown to provide little snf benefit. If the patient does have a significant meniscus tear in his left knee he may benefit from left knee arthroscopic surgery. I will send the patient for an MRI of his left knee for further evaluation. He will continue with his activity modifications in the meantime. Feel free to call me at any time should questions regarding his orthopedic management arise. I spent 21 minutes in reviewing the patient's records and imaging studies, seeing the patient and documenting in the medical record. Orders: Orders AMB Joint Injection/Aspiration 10/13/23 M25.561 - Pain in right knee AMB Joint Injection/Aspiration 10/13/23 M25.562 - Pain in left knee XR knee RT 3V 10/13/23 M25.561 - Pain in right knee MR knee LT wo con 10/13/23 M25.562 - Pain in left knee Coding Level of Care Code Est Pt Level 3 (09165) Complex EM visit Add On G2211 Diagnoses Left knee pain M25.562 Right knee pain M25.561 CPT Codes Coding - 23098 Large joint: 34646 - Large joint ([id number]) Coding - 43514 Large joint: 04909 - Large joint ([id number])
== END 2023-10-13 15:48 | disposition home or self-care (01) ==
PROVIDERS: PCP Internal Medicine; Visit Provider Orthopaedic Surgery
DX: M17.0 Bilateral primary osteoarthritis of knee (principal)
CPT/HCPCS: 20610; 99213

== ENCOUNTER 2023-12-08 06:20 | Day surgery (SDC) | payer OTHER, SELFPAY ==
[2023-12-06 15:12] VITALS: BMI 30.1
--- NOTE | 2023-12-07 08:29 | P.CONAN_ITS ---
Documented by User: Angeline Lanza NP 12/07/23 08:29 HPI - Anesthesia Eval Consult details Narrative: 58yo M for Upper Endoscopy and Colonoscopy PMF Active Problems Active Problems: All Active Problems Left knee pain (Acute) Plantar fasciitis (Acute) Acid reflux (Acute) Family history of colon cancer (Acute) Right knee pain (Acute) Essential hypertension (Acute) Erectile dysfunction (Acute) Major depressive disorder in remission (Acute) Generalized anxiety disorder (Acute) Borderline hypercholesterolemia (Acute) Past Medical History Medical History ADD (attention deficit disorder) Asthma GERD (gastroesophageal reflux disease) Essential hypertension Left knee pain Erectile dysfunction Major depressive disorder in remission Reactive airway disease Generalized anxiety disorder Borderline hypercholesterolemia Family History Family History Father Cancer Hypertension Mother Cancer Surgical History Surgical History H/O colonoscopy History of tonsillectomy History of varicose vein stripping History of shoulder surgery Social History Social History Housing: House Alcohol intake: never Patient Tobacco Use Status: Former Tobacco user Tobacco use type: Cigarette e-Cigarette/Vaping Use: Never Used Second Hand Smoke Exposure: No Use of substances other than those prescribed or required for medical reasons: No Are you DNR?: No Advance Directives: No Advance Directives Information Provided: Yes Recently lost weight without trying: No service: Yes Current occupational status: employed Current occupational exposures/hazards: Yes Cognitive needs: No Hearing needs: No Vision needs: Yes (glasses) Meds Allergies Allergy/AdvReac Type Severity Reaction Status Date / Time acetaminophen [Vicodin] Allergy Unknown itching Verified 10/13/23 15:30 hydrocodone [From VICODIN] Allergy Unknown ITCHING Verified 10/13/23 15:30 Home Medications ?Medication ?Instructions ?Recorded ?Confirmed ?Last Taken ?Type sertraline 50 mg tablet 50 mg PO DAILY 03/23/22 12/08/23 Unknown History quetiapine 100 mg tablet 50 mg PO BEDTIME 03/21/23 12/08/23 Unknown History dextroamphetamine-amphetamine 10 1 tab PO DAILY 12/08/23 12/08/23 Unknown History mg tablet dextroamphetamine-amphetamine ER 1 cap PO DAILY 12/08/23 12/08/23 Unknown History 30 mg 24hr capsule,extend release fluticasone furoate 100 1 ea inhalation DAILY 12/08/23 12/08/23 Unknown History mcg-vilanterol 25 mcg/dose inhalation powder (Breo Ellipta) hydroxyzine pamoate 25 mg capsule 25 mg PO DAILY PRN Anxiety 12/08/23 12/08/23 Unknown History mirtazapine 15 mg tablet 15 mg PO BEDTIME 12/08/23 12/08/23 Unknown History Exam Height,Weight and Vital Signs: Height 5 ft 7 in Weight 87.09 kg Assessment and Plan Assessment Anesthesia Assessment: Chart Reviewed Documented by User: Olinda Clinton MD 12/08/23 08:18 [facility] Past Medical History Medical History ADD (attention deficit disorder) Asthma GERD (gastroesophageal reflux disease) Essential hypertension Left knee pain Erectile dysfunction Major depressive disorder in remission Reactive airway disease Generalized anxiety disorder Borderline hypercholesterolemia Family History Family History Father Cancer Hypertension Mother Cancer Family history of problems with anesthesia: No Surgical History Surgical History H/O colonoscopy History of tonsillectomy History of varicose vein stripping History of shoulder surgery History of Problems with Anesthesia: No Social History Social History Housing: House Alcohol intake: never Patient Tobacco Use Status: Former Tobacco user Tobacco use type: Cigarette e-Cigarette/Vaping Use: Never Used Second Hand Smoke Exposure: No Use of substances other than those prescribed or required for medical reasons: No Are you DNR?: No Advance Directives: No Advance Directives Information Provided: Yes Recently lost weight without trying: No service: Yes Current occupational status: employed Current occupational exposures/hazards: Yes Cognitive needs: No Hearing needs: No Vision needs: Yes (glasses) Meds Allergies Allergy/AdvReac Type Severity Reaction Status Date / Time acetaminophen [Vicodin] Allergy Unknown itching Verified 10/13/23 15:30 hydrocodone [From VICODIN] Allergy Unknown ITCHING Verified 10/13/23 15:30 Home Medications ?Medication ?Instructions ?Recorded ?Confirmed ?Last Taken ?Type sertraline 50 mg tablet 50 mg PO DAILY 03/23/22 12/08/23 Unknown History quetiapine 100 mg tablet 50 mg PO BEDTIME 03/21/23 12/08/23 Unknown History dextroamphetamine-amphetamine 10 1 tab PO DAILY 12/08/23 12/08/23 Unknown History mg tablet dextroamphetamine-amphetamine ER 1 cap PO DAILY 12/08/23 12/08/23 Unknown History 30 mg 24hr capsule,extend release fluticasone furoate 100 1 ea inhalation DAILY 12/08/23 12/08/23 Unknown History mcg-vilanterol 25 mcg/dose inhalation powder (Breo Ellipta) hydroxyzine pamoate 25 mg capsule 25 mg PO DAILY PRN Anxiety 12/08/23 12/08/23 Unknown History mirtazapine 15 mg tablet 15 mg PO BEDTIME 12/08/23 12/08/23 Unknown History Exam Airway Mallampati Class: II TM Dist: >3cm Neck ROM: Full Heart: rrr Lungs: cta Assessment and Plan Assessment Anesthesia Assessment: Anesthesia Plan Discussed Final Anesthetic Review Family History of Problems with Anesthesia: No History of Problems with Anesthesia: No NPO: Yes ASA Class: III Final Preanesthetic Review: No Changes in Pt Med Stat, Meds/Allgs Chart Reviewed, Consent Obtained/Reviewed and Anes Risks/Benef Reviewed Patient Risk: Intermediate Procedure Risk: Low Anesthetic Plan Anesthetic Plan: MAC: Disposition: Standard PACU
[2023-12-08 06:38] VITALS: BMI 28.7
[2023-12-08 06:58] VITALS: BP 149/91; PULSE 79; RESP 15; TEMP 36.5; O2SAT 96
[2023-12-08] MEDS: Lactated Ringers 1,000 ML 100 ML IVCONT (06:59)
--- NOTE | 2023-12-08 07:40 | P.HPSUR_ITS ---
Pre-Procedural Eval Section A - 24 Hr Update-Section A only Date of Service: 12/08/23 Section B - Complete if H&P > 30 days Chief Complaint: Family history of malignant neoplasm of digestive Relevant Family History (Specify if Yes): Yes Relevant Social History: None Present Medications: see Short Stay Collaborative assessment Medical History: Significant History (Left knee pain Essential hypertension E rectile dysfunction Major depressive disorder in remission Reactive airway disease Generalized anxiety disorder Borderline hypercholesterolemia) History of Previous Operations: Relevant previous surgery/procedure and date(s) (History of tonsillectomy History of varicose vein stripping History of shoulder surgery) Allergies: Allergies Allergy/AdvReac Type Severity Reaction Status Date / Time acetaminophen [Vicodin] Allergy Unknown itching Verified 10/13/23 15:30 hydrocodone [From VICODIN] Allergy Unknown ITCHING Verified 10/13/23 15:30 Review of Systems Sugical H&P ROS: Negative: Constitution, Cardiovascular, Respiratory, Neurological, Psychiatric, Hem-Onc, Allergic/Immunologic, Gastrointestinal, Genitourinary, Musculoskeletal, Integumentary, Endocrine and Eyes/Ears/Nose/Throat Exam Surgical H&P Exam: Normal: HEENT, Normal: Heart, Normal: Lungs, Normal: Extremities, Normal: Abdomen, Normal: Skin and Normal: Neurological Plan Diagnosis/Plan: Unchanged I have reviewed the history and physical and performed a pertinent physical examination on my patient. No changes have occurred unless specified. Time Spent With Patient Time: Total time managing care of this patient today ____ minutes.
--- NOTE | 2023-12-08 07:40 | HO.OPN-COLON ---
Colonoscopy Operative Note Operative Note Date of Service: 12/08/23 Narrative: Operative Information Procedure Description: EGD, Colonoscopy Indication: GERD, FH of CRC Anesthesia: MAC FLEXIBLE TRANSORAL UPPER GASTROINTESTINAL ENDOSCOPY AND COLONOSCOPY PROCEDURE NOTE UPPER ENDOSCOPY Consent: Indications for the procedure and potential complications of bleeding, perforation, reaction to medications and missed diagnosis were discussed with the patient and informed consent was obtained. Instrument: Olympus GIF H 190 J mid size upper endoscope Monitoring: Vital signs and clinical assessment, continuous EKG monitoring, Pulse oximetry, Carbon Dioxide monitoring and blood pressure monitoring were done throughout the procedure. Procedure: The patient was placed in the left lateral decubitis position and pre-procedure medications were administered and a bite block was placed. The endoscope was inserted into the mouth and advanced under direct vision to the third part of duodenum. A careful inspection was made as the upper endoscope was withdrawn including a retroflexed examination of the proximal stomach; Findings and interventions are described below. Findings: Larynx:normal Esophagus: GE junction at 38 cm, diaphragm hiatus at 38 cm, small white spots noted, ?eric or microabscesses, bx taken from mid esophagus and distal Stomach: mild erythema. Biopsies were obtained. Grade 2 flap valve on retroflexed examination of the cardia. Duodenum: Normal bulb and descending duodenum, Intervention: Biopsies as noted above, COLONOSCOPY Instrument: Olympus variable stiffness pediatric scope 190L Colonoscopy Monitoring: Vital signs and clinical assessment, continuous EKG monitoring, Pulse oximetry, Carbon Dioxide monitoring and blood pressure monitoring were done throughout the procedure. Colon withdrawal time was 10 minutes. Procedure: The patient was placed in the left lateral decubitis position and pre-procedure medications were administered. After a digital rectal examination of the ano-rectum, the video colonoscope was inserted into the rectum and advanced through the colon to the cecum/TI. The colonoscope was slowly withdrawn in a retrograde panoramic fashion and the colon mucosa was carefully examined including a retroflexed view of the rectum. Findings and interventions are described below. Procedure Difficulty:moderate Findings: Terminal Ileum-normal Cecum:normal Ascending Colon: 10 mm sessile polyp removed with cold snare Transverse Colon -normal Descending Colon: x 2 sessile polyps 6-8 mm, one removed with cold forceps and the other by cold snare Sigmoid Colon: normal Rectum: Retroflexion with small internal hemorrhoids, grade I Anorectum - normal Colon preparation: [place] Bowel Preparation Scale Right colon; 2 Transverse colon: 2 Left colon; 2 (0 = Unprepared colon segment with mucosa not seen due to solid stool that cannot be cleared. 1 = Portion of mucosa of the colon segment seen, but other areas of the colon segment not well seen due to staining, residual stool and/or opaque liquid. 2 = Minor amount of residual staining, small fragments of stool and/or opaque liquid, but mucosa of colon segment seen well. 3 = Entire mucosa of colon segment seen well with no residual staining, small fragments of stool or opaque liquid) Impression and Post Procedure Diagnosis: Endoscopy Findings: mild gastritis possible esophageal candidiasis Colonoscopy Findings: colon polyps internal hemorrhoids Plan: Await Pathology results Repeat Colonoscopy in 3-4 years due to adenomatous appearing polyps or earlier if clinically indicated High fiber diet leaflet avoid straining at stool, epsom salts and sitz bath, anusol supps or cream if eric pos will treat Above findings were reviewed with the patient and relevant handouts were provided if indicated.
[2023-12-08 08:21] VITALS: BP 155/89; PULSE 92; RESP 16; TEMP 36.1; O2SAT 97
[2023-12-08 08:36] VITALS: BP 145/91; PULSE 91; RESP 16; TEMP 36.1; O2SAT 98
[2023-12-08 08:51] VITALS: BP 154/92; PULSE 92; RESP 16; TEMP 36.1; O2SAT 98
== END 2023-12-08 10:12 | disposition home or self-care (01) ==
PROVIDERS: PCP Internal Medicine; Visit Provider Internal Medicine Gastroenterology
PROC: (CPT 45385; principal; 2023-12-08 07:30)
DX: Z12.11 Encounter for screening for malignant neoplasm of colon (principal); Z80.0 Family history of malignant neoplasm of digestive organs; D12.2 Benign neoplasm of ascending colon; D12.4 Benign neoplasm of descending colon; K64.0 First degree hemorrhoids; K21.9 Gastro-esophageal reflux disease without esophagitis; K20.80 Other esophagitis without bleeding; K29.50 Unspecified chronic gastritis without bleeding; B96.81 Helicobacter pylori [H. pylori] as the cause of diseases classified elsewhere; K44.9 Diaphragmatic hernia without obstruction or gangrene; I10 Essential (primary) hypertension; F32.5 Major depressive disorder, single episode, in full remission; F41.1 Generalized anxiety disorder; J45.909 Unspecified asthma, uncomplicated; Z79.51 Long term (current) use of inhaled steroids; Z79.899 Other long term (current) drug therapy; Z88.8 Allergy status to other drugs, medicaments and biological substances; Z87.891 Personal history of nicotine dependence
CPT/HCPCS: 45385; 45380; 43239; 88305; 88312; 88313; 88342; J1100; J1596; J2003; J2250; J2704

== ENCOUNTER → 2023-12-08 06:20 | Outpatient (BNV) | payer OTHER, SELFPAY | PROVIDERS: PCP Internal Medicine; Visit Provider Internal Medicine Gastroenterology | DX: Z12.11 Encounter for screening for malignant neoplasm of colon (principal); Z80.0 Family history of malignant neoplasm of digestive organs; D12.2 Benign neoplasm of ascending colon; D12.4 Benign neoplasm of descending colon; K64.0 First degree hemorrhoids; K21.00 Gastro-esophageal reflux disease with esophagitis, without bleeding; K29.70 Gastritis, unspecified, without bleeding | CPT/HCPCS: 43239; 45380; 45385 ==

== ENCOUNTER 2024-01-11 15:27 | Outpatient (AMB) | payer OTHER, SELFPAY ==
--- NOTE | 2024-01-11 15:32 | A.OFFPC_ITS ---
Vital Signs 01/11/24 15:33 Height 5 ft 7 in Weight 195 lb 4 oz BMI 30.6 BP 132/80 Blood Pressure Location Lt brachial Position Sitting Pulse 108 H Pulse Source Pulse Oximeter Pulse Oximetry (%) 97 Oxygen Delivery Method Room Air Intake Visit Reasons: 3-4 month BP Intake Note: Patient is here to follow up on HTN. Valet Attendant Required: No Log Check Scaler: Not Required per policy Accompanied by: Self / Same As Patient Allergies acetaminophen [Vicodin] Allergy (Unknown, Verified 01/11/24 15:33) itching hydrocodone [From VICODIN] Allergy (Unknown, Verified 01/11/24 15:33) ITCHING Tobacco use date assessed: 01/11/24 Dental Screening Dental Screen Date: 03/21/23 HPI 3-4 month BP HPI Details 58-year-old male presents to the office to discuss his chronic medical conditions. Compliant with medications. Left knee is beginning to hurt, usually the hamstrings get stretched, he is requesting a refill on cyclobenzaprine. Recently had an endoscopy. [facility] Medical History ADD (attention deficit disorder) Asthma GERD (gastroesophageal reflux disease) Essential hypertension Left knee pain Erectile dysfunction Major depressive disorder in remission Reactive airway disease Generalized anxiety disorder Borderline hypercholesterolemia Surgical History (Updated 01/11/24 @ 15:36 by VIRGINIA Reeves) History of endoscopy H/O colonoscopy History of tonsillectomy History of varicose vein stripping History of shoulder surgery Family History Father Cancer Hypertension Mother Cancer Social History Housing: House Alcohol intake: never Patient Tobacco Use Status: Former Tobacco user Tobacco use type: Cigarette e-Cigarette/Vaping Use: Never Used Second Hand Smoke Exposure: No service: Yes Current occupational status: employed Current occupational exposures/hazards: Yes Cognitive needs: No Hearing needs: No Vision needs: Yes (glasses) Questionnaire Thrive Questionnaire Date Thrive assessed: 03/21/23 SUKHI-7 AMB Questionnaire SUKHI-7 Date SUKHI - 7 assessed: 03/21/23 Source: Developed by Drs. Massimo Acosta, Zee Philippe Acevedo and colleagues, with an educational yonathan from [employer]. Physical exam (Primary Care) Vital Signs: Last Vital Signs Pulse 108 H 01/11/24 15:33 BP 132/80 01/11/24 15:33 Pulse Ox 97 01/11/24 15:33 Oxygen Delivery Method Room Air 01/11/24 15:33 BMI result Body Mass Index 30.6 Tobacco/Smoking Status: Tobacco use Status Tobacco use date assessed 01/11/24 01/11/24 15:39 Patient Tobacco Use Status Former Tobacco user 01/11/24 15:39 Tobacco use type Cigarette 01/11/24 15:39 e-Cigarette/Vaping Use Never Used 01/11/24 15:39 Thrive Assessment: Date of Thrive Assessment Date Thrive assessed 03/21/23 01/11/24 15:39 Const General: cooperative and healthy appearing Nutritional Appearance: well nourished Orientation/consciousness: patient oriented x3 Limitations: no limitations HENMT Head: Yes normal to inspection Eyes General: appearance normal, both eyes and all related structures Neck Neck: Yes normal visual inspection Chest Chest palpation & inspection: normal palpation of entire chest wall Resp Effort & Inspection: normal respiratory effort Neuro General: patient oriented x3 Office Procedures Flu Questionnaire Does the patient have a severe egg allergy?: No Does the patient have severe life threatening allergies?: No Does the patient have a fever or illness today?: No Has the patient ever had Guillain-[place] Syndrome?: No Has the patient ever had any past reaction to a flu shot?: No Immunizations Fluarix Triv [id number] (PF) 45 mcg (15 mcg x 3)/0.5 mL IM syringe Performing Provider: Jose Orellana MD [facility] Administered by: Tracey Mai LPN on 01/11/24 15:48 Dose Route Admin Location Dispensed Lot Number Expiration Date [facility] Guard [employer] 0.5 mL IM Left Deltoid 0.5 mL [id number] 08/13/24 [id number] [employer] VIS Given Date VIS Provided VIS Publication Date 01/11/24 Single Vaccine 20 Eligibility Eligibility Date Funding Source Not [facility] Eligible 01/11/24 Private Coding Level of Care Code Est Pt Level 3 (56983) Complex EM visit Add On G2211 Diagnoses Essential hypertension I10 Assessment & Plan Assessment & Plan (1) Essential hypertension: Code(s): I10 - Essential (primary) hypertension Category: Medical Plan: HCTZ added to the regimen. Orders: Orders Influenza [id number] Immunization Today Z23 - Encounter for immunization Medications: New hydrochlorothiazide 25 mg PO Q OTHER DAY 90 tabs 1RF Changed From cyclobenzaprine 10 mg PO TID PRN 30 tabs 0RF muscle spasm To cyclobenzaprine 10 mg PO DAILY PRN 30 tabs 0RF muscle spasm
[2024-01-11 15:33] VITALS: BP 132/80; PULSE 108; O2SAT 97; BMI 30.6
== END 2024-01-11 16:03 | disposition home or self-care (01) ==
PROVIDERS: PCP Internal Medicine; Visit Provider Internal Medicine
DX: Z23 Encounter for immunization (principal); I10 Essential (primary) hypertension

== ENCOUNTER → 2024-01-11 15:27 | Outpatient (BNVA) | payer OTHER, SELFPAY | PROVIDERS: PCP Internal Medicine; Visit Provider Internal Medicine | DX: I10 Essential (primary) hypertension (principal); Z79.899 Other long term (current) drug therapy; Z23 Encounter for immunization | CPT/HCPCS: 90471; 90656 ==

== ENCOUNTER 2024-08-06 08:17 | Outpatient (REF) | payer OTHER, SELFPAY ==
--- NOTE | ~2024-08-06 | XR_ITS ---
EXAMINATION: XR HAND, RIGHT CLINICAL INFORMATION: M79.641 - Pain in right hand , thumb pain COMPARISON: None available. TECHNIQUE: PA, lateral, and oblique views of the right hand. FINDINGS: Nonspecific focal lucency is present in the radial side of the head of the proximal phalanx of the third digit. There are no other changes that raise concern for erosions. 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 Faint soft tissue calcification is present in the soft tissues distal to the radial styloid. XR/XR hand RT min 3V IMPRESSION: Essentially unremarkable examination. Specifically, no abnormality of the thumb. 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 Electronically signed by: David Montesinos MD 08/06/2024 03:37 PM EDT
== END 2024-08-06 08:18 | disposition home or self-care (01) ==
LOC: HO.HOSX 08:17
DX: M79.644 Pain in right finger(s) (principal)
CPT/HCPCS: 73130

== ENCOUNTER 2024-08-06 14:55 | Outpatient (AMB) | payer OTHER, SELFPAY ==
--- NOTE | 2024-08-06 15:14 | MHC.OFFVIS ---
Vital Signs 08/06/24 15:15 Height 5 ft 7 in Weight 195 lb BMI 30.5 Intake Visit Reasons: New Prob-Right Thumb Pain Intake Note: Rafael is a 59 year old right hand dominant male presents today for a new problem visit for right thumb pain. States pain started off and on in the last 10 years and has worsen in the last 5 years. 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 Reports he has clicking in his thumb that started after a injury in the early s. He is also having numbness and tingling after using his work tools. No EMG done. Allergies acetaminophen (Vicodin) Allergy (Unknown, Verified 08/06/24 15:18) itching hydrocodone (From VICODIN) Allergy (Unknown, Verified 08/06/24 15:18) ITCHING HPI HPI New Prob-Right Thumb Pain: Details: Rafael is a 59 year old right hand dominant male presents today for a new problem visit for right thumb pain. States pain started off and on in the last 10 years and has worsen in the last 5 years. 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 Reports he has clicking in his thumb that started after a injury in the early s. He is also having numbness and tingling after using his work tools. No EMG done. [facility] Medical History (Updated 08/06/24 @ 18:04 by PEG Tan) ADD (attention deficit disorder) Asthma GERD (gastroesophageal reflux disease) Essential hypertension Left knee pain Erectile dysfunction Major depressive disorder in remission Reactive airway disease Generalized anxiety disorder Borderline hypercholesterolemia Surgical History (Updated 01/11/24 @ 15:36 by VIRGINIA Reeves) History of endoscopy H/O colonoscopy History of tonsillectomy History of varicose vein stripping History of shoulder surgery Family History Father Cancer Hypertension Mother Cancer Social History (Updated 08/06/24 @ 15:19 by BRIAN Palomo) Housing: House Alcohol intake: never Patient Tobacco Use Status: Former Tobacco user Tobacco use type: Cigarette e-Cigarette/Vaping Use: Never Used Second Hand Smoke Exposure: No service: Yes Current occupational status: employed 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 Neuro: Normal sensation of the tips of all digits of the right hand at this time Vascular: Cap refill brisk Pain: Some tenderness to palpation of the MCP joint of the right thumb Pain with associated clicking ROM: There is some visible and palpable clicking at the MCP joint of the right thumb, not consistent with trigger finger Skin: No lacerations or abrasions. General: No ecchymosis, erythema, or evidence of infection. 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 Assessment & Plan Assessment & Plan (1) Chronic pain of right thumb: Code(s): M79.644 - Pain in right finger(s); G89.29 - Other chronic pain Category: Medical (2) Numbness and tingling of right hand: Code(s): R20.0 - Anesthesia of skin; R20.2 - Paresthesia of skin Category: Medical Plan 1. Chronic pain of right thumb 2. Numbness and tingling of right hand Patient is educated about this condition Patient is educated about the typical recovery course OT ordered for range of motion and strengthening of the right thumb EMG and nerve conduction study ordered to assess the health of the nerves of the right hand Patient is amenable to this plan Follow-up after EMG and nerve conduction study Orders: Orders NE nerve conduction velocity Today R20.0 - Anesthesia of skin, R20.2 - Paresthesia of skin OT Evaluation and Treatment Today G89.29 - Other chronic pain, M79.644 - Pain in right finger(s) XR hand RT min 3V Today M79.641 - Pain in right hand NE electromyogram (EMG) Today R20.0 - Anesthesia of skin, R20.2 - Paresthesia of skin Coding Level of Care Code New Pt Level 3 (72937) Diagnoses Chronic pain of right thumb M79.644; G89.29 Numbness and tingling of right hand R20.0; R20.2
[2024-08-06 15:15] VITALS: BMI 30.5
--- OUTSIDE RECORDS SUMMARY | 2024-08-06 16:27 | XMS_ITS ---
Author Name [facility] Organization Unknown Problems Problem Status Onset Date Problem Type Date of Resoluti on Source Patellar bursitis of right knee active EncounterDiagnosisAct CCT Encounters Encounter Type Encounter Reason Primary Diagnosis Location Date Ambulatory Pain Pain [facility] 05/22/2023 Care Team Organization Name Specialty Phone Email Start Date End Da te [facility] 05/22/2023 [facility] 05/22/2023 [facility] 05/22/2023
== END 2024-08-06 15:57 | disposition home or self-care (01) ==
LOC: HO.HOS 14:56
PROVIDERS: PCP Internal Medicine
DX: M79.644 Pain in right finger(s) (principal); G89.29 Other chronic pain; R20.0 Anesthesia of skin; R20.2 Paresthesia of skin
CPT/HCPCS: 99213

== ENCOUNTER → 2024-08-06 14:59 | Outpatient (BNV) | payer OTHER, SELFPAY | PROVIDERS: Visit Provider Radiology Diagnostic Radiology | DX: S52.614K Nondisplaced fracture of right ulna styloid process, subsequent encounter for closed fracture with nonunion (principal) | CPT/HCPCS: 73130 ==

== ENCOUNTER 2024-12-26 15:40 | Outpatient (AMB) | payer OTHER, SELFPAY ==
--- NOTE | 2024-12-26 15:47 | A.OFFPC_ITS ---
Vital Signs 12/26/24 15:49 Height 5 ft 7 in Weight 180 lb BMI 28.2 BP 126/78 Blood Pressure Location Lt brachial Position Sitting Pulse 102 H Pulse Source Pulse Oximeter Temp 97.3 F Temp Source Temporal Artery Scan Pulse Oximetry (%) 98 Oxygen Delivery Method Room Air Intake Visit Reasons: follow up Intake Note: Patient is here to follow up on HTN, Hypercholesterolemia. Manager Hematology Required: No Lithopone Charger: Not Required per policy Accompanied by: Self / Same As Patient Allergies acetaminophen (Vicodin) Allergy (Unknown, Verified 12/26/24 15:48) itching hydrocodone (From VICODIN) Allergy (Unknown, Verified 12/26/24 15:48) ITCHING Tobacco use date assessed: 12/26/24 Dental Screening Dental Screen Date: 12/26/24 Did you have a dental visit in the last 12 months?: Yes Did you have a dental problem in the last 6 months where you did not have access to dental care?: No Was dental information given to patient?: Patient has dentist [facility] Medical History (Updated 08/06/24 @ 18:04 by PEG Tan) ADD (attention deficit disorder) Asthma GERD (gastroesophageal reflux disease) Essential hypertension Left knee pain Erectile dysfunction Major depressive disorder in remission Reactive airway disease Generalized anxiety disorder Borderline hypercholesterolemia Surgical History History of endoscopy H/O colonoscopy (~12/08/23) History of tonsillectomy History of varicose vein stripping History of shoulder surgery Family History Father Cancer Hypertension Mother Cancer Social History Housing: House Alcohol intake: never Patient Tobacco Use Status: Former Tobacco user Tobacco use type: Cigarette e-Cigarette/Vaping Use: Never Used Second Hand Smoke Exposure: Yes service: Yes Current occupational status: employed 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 1. Little interest or pleasure in doing things: not at all 2. Feeling down, depressed, or hopeless: not at all 3. Trouble falling or staying asleep, or sleeping too much: not at all 4. Feeling tired or having little energy: not at all 5. Poor appetite or overeating: not at all 6. Feeling bad about yourself - or that you are a failure or have let yourself or your family down: not at all 7. Trouble concentrating on things, such as reading the newspaper or watching television: nearly every day 8. Moving or speaking so slowly that other people could have noticed. Or the opposite - being so fidgety or restless that you have been moving around a lot more than usual: more than half the days 9. Thoughts that you would be better off or of hurting yourself in some way: nearly every day Total score: 8 Depression Screening Interpretation: Positive Depression Screening Done: Yes Source: Developed by Drs. Massimo Acosta, Zee Lopez, Philippe Groves and colleagues, with an educational yonathan from [employer]. Thrive Questionnaire Date Thrive assessed: 12/26/24 I am a: Patient What is your living situation today?: I have a steady place to live Within the past 12 months, did the food you bought not last and you didn't have the money to get more?: Never true Within the past 12 months, did you worry whether your food would run out before you got money to buy more?: Never true Do you have trouble paying for medicines?: I choose not to answer this question Do you have trouble getting transportation to medical appointments?: No Do you have trouble paying your heating and electricity bill?: I choose not to answer this question Do you have trouble taking care of your child, family member or friend?: No Do you have trouble with day-to-day activities such as bathing, preparing meals, shopping, managing finances, etc.?: No Are you currently unemployed and looking for a job?: No Are you interested in more education?: No Please select the resources that you would like help with: None Currently or been in a relationship where the following occur: No concerns reported THRIVE Score: 0 AUDIT C Alcohol Use Questionnaire (AUDIT-C) 1. How often do you have a drink containing alcohol?: Never Total Score: 0 SUKHI-7 AMB Questionnaire SUKHI-7 Date SUKHI - 7 assessed: 12/26/24 Feeling nervous, anxious, or on edge: 3 = Nearly every day Not being able to stop or control worryin = Nearly every day Worrying too much about different things: 1 = Several days Trouble relaxin = Several days Being so restless that it is hard to sit still: 1 = Several days Becoming easily annoyed or irritable: 2 = More than half the days Feeling afraid as if something awful might happen: 3 = Nearly every day Total SUKHI-7 score (0-4 normal; 5-9 mild; 10-14 moderate; 15-21 severe): 14 Source: Developed by Drs. Massimo Acosta, Zee Lopez, Philippe Groves and colleagues, with an educational yonathan from [employer]. Physical exam (Primary Care) Vital Signs: Last Vital Signs Temp 97.3 F 12/26/24 15:49 Pulse 102 H 12/26/24 15:49 BP 126/78 12/26/24 15:49 Pulse Ox 98 12/26/24 15:49 Oxygen Delivery Method Room Air 12/26/24 15:49 BMI result Body Mass Index 28.2 Tobacco/Smoking Status: Tobacco use Status Tobacco use date assessed 12/26/24 12/26/24 15:55 Patient Tobacco Use Status Former Tobacco user 12/26/24 15:55 Tobacco use type Cigarette 12/26/24 15:55 e-Cigarette/Vaping Use Never Used 12/26/24 15:55 PHQ-9: PHQ-9 Score PHQ-9: Total score 8 12/26/24 16:19 Depression Screening Interpretation: Positive Thrive Assessment: Date of Thrive Assessment Date Thrive assessed 12/26/24 12/26/24 15:55 Currently or been in a relationship where the following occur: No concerns reported Office Procedures Flu Questionnaire Does the patient have a severe egg allergy?: No Does the patient have severe life threatening allergies?: No Does the patient have a fever or illness today?: No Has the patient ever had Guillain-[place] Syndrome?: No Has the patient ever had any past reaction to a flu shot?: No Immunizations Fluarix [id number] (PF) 45 mcg (15 mcg x 3)/0.5 mL IM syringe Performing Provider: Jose Orellana MD Performing Location: [facility] [place] [facility] Administered by: VIRGINIA Helton on 12/26/24 16:22 Dose Route Admin Location Dispensed Lot Number Expiration Date ND Taxonomist 0.5 mL IM Left Deltoid 0.5 mL [id number] 08/13/25 [id number] [employer]LA[employer]O SMITHKLINE VIS Given Date VIS Provided VIS Publication Date 12/26/24 Single Vaccine 24 Eligibility Eligibility Date Funding Source Not [facility] Eligible 12/26/24 Private Coding Level of Care Code Est Pt Level 4 (75197) Complex EM visit Add On G2211 Diagnoses Essential hypertension I10 Hammer toes of both feet M20.41; M20.42 Assessment & Plan Assessment & Plan (1) Essential hypertension: Code(s): I10 - Essential (primary) hypertension Category: Medical Plan: History of Present Illness - The patient is a 59-year-old male presenting for medication refills and management of multiple chronic conditions. - [facility] and associated insomnia, for which he takes Seroquel. - The patient attributes his overeating of sugar to Seroquel and reports being unable to discontinue the medication because he cannot sleep without it, which would prevent him from working. 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 - His knee pain was previously managed with meloxicam 50 mg and is now treated with Celebrex 200 mg as prescribed [address] Redding. - Foot problems include bilateral pronation from his service, developing hammertoes, and a history of plantar fasciitis. - He underwent a procedure by Dr. Redding for hallux rigidus where the nails of the big toe were addressed, and he uses insoles that are seven years old. - He has a history of hemorrhoids and reports being a candidate for surgery according to Dr. Redding. - Recently, he was treated for a severe sinus infection at a short-stay facility in [place]. - He confirms he is up to date on his colonoscopy. 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 - Past Employment: He was a experimental welder in the from approximately 1988 to 1998. - Functional Status: He is able to work but describes it as tough. - Nutrition: The patient reports overeating sugar, which he attributes to his Seroquel medication. Review of Systems - Psychiatric: Reports insomnia if not taking Seroquel. - ENT: Reports history of tinnitus. Reports a recent severe sinus infection. - Musculoskeletal: Reports struggling with pain in his knees and feet. Reports flare-ups of knee pain despite not being on his knees for his current job. He notes pain in his toes as they start to hammer. - Endocrine: Reports overeating sugar. - Integumentary: Reports thickening of the skin on his knees from his time in the . Physical Exam General: Cooperative and healthy appearing Nutritional Appearance: Well nourished Orientation/consciousness: Patient oriented x3 Limitations: No limitations Head: Normal to inspection General: Appearance normal, both eyes and all related structures Neck: Normal visual inspection Chest: Normal palpation of entire chest wall Respiratory: N ormal respiratory effort Neurology: Patient oriented x3, reports tinnitus. Results Plan - An order will be placed for blood work. - The patient will receive a flu shot during this visit. - A refill for his erectile dysfunction medication, Liagrit, will be provided. - Monitor metabolic parameters via blood work in the context of his reported increased sugar intake. Discussion Notes I discussed ordering blood work, which has not been done in a year, and the patient was agreeable. The patient consented to receiving a flu shot today. We discussed his concern about overeating sugar, which he believes is a side effect of Seroquel. I explained that there is no medication to counteract this, and we will assess his blood work. I also noted the fragmentation of his care across multiple providers, including [facility] and specialists for his orthopedic issues. Patient Instructions - Please go to the lab to have your blood drawn. - You will receive your flu shot today in the office. - A refill for your medication for erectile dysfunction has been sent to your pharmacy. - We will follow up on your lab results once they are available. (2) Hammer toes of both feet: Code(s): M20.41 - Other hammer toe(s) (acquired), right foot; M20.42 - Other hammer toe(s) (acquired), left foot Plan: Patient gives history of hammer toes and is getting treatment from a golf course equipment operator. His feet were not examined on this office visit. Orders: Orders Lipid Panel 12/26/24 I10 - Essential (primary) hypertension Liver Panel 12/26/24 I10 - Essential (primary) hypertension UA and rflx microscopic 12/26/24 I10 - Essential (primary) hypertension Influenza [id number] Immunization 12/26/24 Z23 - Encounter for immunization Basic Metabolic Panel 12/26/24 I10 - Essential (primary) hypertension Complete Blood Count no Diff 12/26/24 I10 - Essential (primary) hypertension Thyroid Stimulating Hormone 12/26/24 I10 - Essential (primary) hypertension
[2024-12-26 15:49] VITALS: BP 126/78; PULSE 102; TEMP 36.3; O2SAT 98; BMI 28.2
--- OUTSIDE RECORDS SUMMARY | 2024-12-26 18:44 | XMS_ITS | Clinical Summary ---
Author Organization [facility] Address [address] [place] [address] Care Team Providers Care Claim Administrator Name Role Phone Pcp, No Primary Care Provider Unavailabl e Social History Tobacco Use Types Packs/Day Years Used Date Smoking Tobacco: Never Assessed Sex and Gender Information Value Date Recorded Sex Assigned at Not on file Legal Sex Male 6:20 PM EST Gender Identity Not on file Sexual Orientation Not on file Plan of Treatment Health Maintenance Due Date Last Done Comments Hepatitis C Virus Screening 1966 HIV Screening 07/27/1979 DTaP/Tdap/Td Vaccines (1 - Tdap) 1985 Hepatitis B Vaccines (1 of 3 - 19+ 3-dose series) 07/15 Colonoscopy 07/27/2011 Pneumococcal Vaccines 50+ (1 of 1 - PCV) 2016 Zoster (Shingles) Vaccine (1 of 2) 2016 Influenza Vaccine 09/14/2024 COVID-19 Vaccine (1 - 2023- season) 2024 RSV Vaccine 50 years and old er and Patients (1 - 1-dose 75+ series) 2041 Insurance [facility] Care Teams Claim Administrator Relationship Specialty Start Date End Date Pcp, No PCP - General General Medicine 05/22/24
== END 2024-12-26 16:29 | disposition home or self-care (01) ==
LOC: HO.HMCH 15:41
PROVIDERS: PCP Internal Medicine; Visit Provider Internal Medicine
DX: Z23 Encounter for immunization (principal)

== ENCOUNTER → 2024-12-26 15:40 | Outpatient (BNVA) | payer OTHER, SELFPAY | PROVIDERS: PCP Internal Medicine; Visit Provider Internal Medicine | DX: I10 Essential (primary) hypertension (principal); M20.41 Other hammer toe(s) (acquired), right foot; M20.42 Other hammer toe(s) (acquired), left foot; Z23 Encounter for immunization | CPT/HCPCS: 90471; 90656; 96127 ==